=== PATIENT | female | born 1995 | race Caucasian/White ===

== ENCOUNTER 2017-04-08 06:38 | Day surgery (SDC) | payer OTHER ==
[~2017-04-08] VITALS: Ht 162.6 cm; Wt 56.7 kg
[2017-04-08] MEDS ORDERED: NEOMYCIN/POLYMYXIN/BACITRACIN OIN 15 GM TUBE TP ONE (07:06)
[2017-04-08] MEDS ORDERED: LIDOCAINE/EPI MPF 1%1:200000 30 ML VIAL INJ ONE (07:07)
[2017-04-08] MEDS ORDERED: PHENYLEPHRINE 1% 15 ML BTL NS ONE (07:07)
[2017-04-08] MEDS ORDERED: PROPOFOL 200 MG/20 ML VIAL IV ONE (08:06)
[2017-04-08] MEDS ORDERED: DESFLURANE 240 ML BTL INH ONE (08:06)
[2017-04-08] MEDS ORDERED: SUCCINYLCHOLINE CHLORIDE 200 MG/10 ML VIAL IVP ONE (08:06)
[2017-04-08] MEDS ORDERED: LIDOCAINE 2% 100 MG/5 ML SYR IVP ONE (08:06)
[2017-04-08] MEDS ORDERED: DEXAMETHASONE 4 MG/ML VIAL ONE (08:06)
[2017-04-08] MEDS ORDERED: ceFAZolin 1,000 MG VIAL ONE (08:15)
[2017-04-08] MEDS ORDERED: fentaNYL 0.05 MG/ML VIAL ONE (08:19)
[2017-04-08] MEDS ORDERED: MIDAZOLAM 2 MG/2 ML VIAL ONE (08:19)
[2017-04-08] MEDS ORDERED: DEXAMETHASONE 10 MG/ML VIAL ONE (08:32)
[2017-04-08] MEDS ORDERED: HYDROmorphone 1 MG/ML AMP IVP PRN (08:45)
[2017-04-08] MEDS ORDERED: ONDANSETRON 4 MG/2 ML VIAL IVP PRN (08:45)
[2017-04-08] MEDS ORDERED: MEPERIDINE 25 MG/ML SYR IVP PRN (09:05)
[2017-04-08] MEDS ORDERED: guaiFENesin DM 200/20 MG-10 ML 10 ML UDC PO PRN (09:05)
[2017-04-08] MEDS ORDERED: PROMETHAZINE 25 MG/ML VIAL IVP PRN (09:05)
[2017-04-08] MEDS ORDERED: ACETAMIN/CODEINE 120/12MG-5ML 5 ML UDC PO PRN (09:05)
--- NOTE | 2017-04-08 09:40 | NUR ---
COOL AEROSOL TO MASK SET UP AT 28%/8 LPM BETY/RN AWARE
[2017-04-08] MEDS: HYDROmorphone PFS 2 MG/ML SYR ONE ×2 (09:50→10:04)
== END 2017-04-08 14:10 | disposition home or self-care (01) ==
LOC: MDS 06:38 → MMU 06:39 → MDS 14:10
PROVIDERS: ATTEND Otolaryngology
DX: J34.2 Deviated nasal septum (principal); J34.3 Hypertrophy of nasal turbinates; J45.909 Unspecified asthma, uncomplicated; I12.9 Hypertensive chronic kidney disease with stage 1 through stage 4 chronic kidney disease, or unspecified chronic kidney disease; E11.22 Type 2 diabetes mellitus with diabetic chronic kidney disease; N18.9 Chronic kidney disease, unspecified; K21.9 Gastro-esophageal reflux disease without esophagitis; D64.9 Anemia, unspecified; E66.3 Overweight; F03.90 Unspecified dementia, unspecified severity, without behavioral disturbance, psychotic disturbance, mood disturbance, and anxiety; Z79.899 Other long term (current) drug therapy; Z72.89 Other problems related to lifestyle; F17.210 Nicotine dependence, cigarettes, uncomplicated; G40.909 Epilepsy, unspecified, not intractable, without status epilepticus
CPT/HCPCS: 30130; 30520; 30999; J0330; J0690; J1100; J1170; J2001; J2175; J2250; J2704; J3010; J7120

== ENCOUNTER 2019-04-30 22:48 | Emergency (ER) | payer OTHER ==
[~2019-04-30] VITALS: Ht 162.6 cm; Wt 68.0 kg
[2019-04-30 23:14] VITALS: BP 109/69
--- NOTE | 2019-04-30 23:16 | NUR ---
TO LOBBY A/W BED AMBULATORY
--- NOTE | 2019-05-01 01:50 | NUR ---
PATIENT CALLED NO RESPONSE PATIENT LEFT WITHOUT BEING SEEN BY DR. HYDE. NO FURTHER CARE PROVIDED FOR PATIENT.
--- NOTE | 2019-05-01 01:55 | NUR ---
CALLED THE SECOND TIME NO RESPONSE
--- NOTE | 2019-05-01 02:00 | NUR ---
CALLED THE THIRD TIME, NO RESPONSE
== END 2019-05-01 01:50 | disposition left against medical advice (07) ==
LOC: MED 22:48
DX: L50.9 Urticaria, unspecified (principal); Z53.21 Procedure and treatment not carried out due to patient leaving prior to being seen by health care provider

== ENCOUNTER 2022-09-29 12:17 | Emergency (ER) | payer OTHER ==
[~2022-09-29] VITALS: Ht 162.6 cm; Wt 55.8 kg
--- NOTE | 2022-09-29 12:20 | NUR ---
pt ambulated to bed 08
--- NOTE | 2022-09-29 12:25 | NUR ---
27 y/o female, c/o right shoulder pain aching/throbbing 05/13 in relation to fall on hoverboard. denies loc, syncope. pt states right hand feels numb, no deformity noted, cap refill <3. pmh: denies nka med: denies
[2022-09-29 12:33] VITALS: BP 110/66
--- NOTE | 2022-09-29 12:35 | NUR ---
MD KENT AT BEDSIDE FOR EVALUATION
--- NOTE | 2022-09-29 12:40 | NUR ---
27YO FEMALE PT C/O THROBBING 05/13 R SHOULDER/ARM PAIN XTODAY. REPORTS FALLING OFF HOVERBOARD -[id number]. PRESENTS WITH REDDENED MILD SWELLING AT ELBOW -LOSS OF SENSATION +NUMBING IN FINGERS. <3CAP REFILL THROUGHOUT .PAIN ON MOVEMENT. PT AAOX4, HOB AND ARM POSITIONED PER COMFORT. HX:DENIES NKA
--- NOTE | 2022-09-29 13:05 | NUR ---
X-Ray at bedside.
--- NOTE | 2022-09-29 13:58 | NUR ---
long arm posterior splint applied to r arm. + cms. splint also applied.
[2022-09-29] MEDS ORDERED: IBUP-2213 PO (14:11)
[2022-09-29 14:54] VITALS: BP 112/70
--- NOTE | 2022-09-29 14:54 | NUR ---
Patient discharged with v/s stable. Written and verbal after care instructions FOR RADIAL HEAD FRACTURE AND CAST/SPLINT CARE given and explained. Patient alert, oriented and verbalized understanding of instructions. Ambulatory with steady gait. All questions addressed prior to discharge. ID band removed. Patient advised to follow up with PMD. Rx of IBUPROFEN given. Opportunity to ask questions provided and answered.
== END 2022-09-29 14:54 | disposition home or self-care (01) ==
LOC: MED 12:17
DX: S52.121A Displaced fracture of head of right radius, initial encounter for closed fracture (principal); V00.131A Fall from skateboard, initial encounter; Y93.89 Activity, other specified; Y92.89 Other specified places as the place of occurrence of the external cause; Y99.8 Other external cause status
CPT/HCPCS: 29105; 73030; 73060; 73080; 73090; 73130; 99284; Q0092